=== PATIENT | female | born 1975 | race Caucasian/White ===

== ENCOUNTER 2016-09-28 12:05 | Emergency (ER) | payer OTHER ==
[2016-09-28] MEDS ORDERED: KETOROLAC 60 MG/2 ML VIAL IVP STA (13:41)
[2016-09-28] MEDS ORDERED: SODIUM CHLORIDE 0.9% 1,000 ML IV ONE (13:41)
[2016-09-28] MEDS ORDERED: HYDROmorphone 1 MG/ML SYRINGE IVP STA ×2 (13:41→14:44)
[2016-09-28] MEDS ORDERED: PROMETHAZINE INJ 25 MG in SODIUM CHLORIDE 0.9% 50 ML IV STA ×2 (13:41→14:44)
[2016-09-28] MEDS ORDERED: KETOROLAC 60 MG/2 ML VIAL ONE (13:43)
[2016-09-28] MEDS ORDERED: HYDROmorphone 1 MG/ML SYRINGE ONE ×2 (13:43→15:00)
[2016-09-28] MEDS ORDERED: PROMETHAZINE 25 MG/1 ML VIAL ONE ×2 (13:43→15:00)
== END 2016-09-28 15:59 | disposition home or self-care (01) ==
DX: N23 Unspecified renal colic (principal); F17.200 Nicotine dependence, unspecified, uncomplicated
CPT/HCPCS: 36415; 80053; 81003; 81025; 83690; 85025; 96365; 96366; 96375; 96376; 99284; J1170

== ENCOUNTER 2019-01-13 18:27 | Emergency (ER) | payer OTHER ==
[2019-01-13 18:44] VITALS: BP 143/96
--- NOTE | 2019-01-13 20:28 | ED Physician Documentation ---
History of Present Illness - Stated complaint Stated Complaint: RT KNEE PX - Chief complaint Chief Complaint: Trauma Ext - History obtained from History obtained from: Patient - History of Present Illness Timing: How many days ago (2) Improved by: rest Worsened by: movement - Additonal information Additional information: right knee pain, gradual onset 2 days ago shortly after moving a heavy fire hose with her RLE. The pain and decreased ROM right knee has steadily progressed. She has had increasing difficulty walking down stairs due to symptoms and tonight nearly fell due to the limited ROM when walking down stairs at home. Patient says she cannot take NSAIDs due to polycystic kidney disease Review of Systems Constitutional: denies: Fever, Chills, Sweats Musculoskeletal: reports: Joint pain, Pain with weight bearing. 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 - Present Medications Home Medications: Ambulatory Orders Medication Instructions Recorded Confirmed Lorazepam [Ativan] 1 mg PO Q8H PRN #10 tablet 09/18/14 Oxycodone HCl/Acetaminophen 1 - 2 each PO Q6H PRN #15 tablet 09/18/14 [Percocet 5-325 mg Tablet] Oxycodone HCl/Acetaminophen 1 - 2 tab PO Q4H PRN #15 tablet 09/28/16 [Percocet 5-325 mg Tablet] Promethazine [Phenergan] 25 - 50 mg PO Q6H PRN #15 tab 09/28/16 oxyCODONE [Roxicodone] 5 mg PO Q6H #14 tablet 01/13/19 - Allergies Allergies/Adverse Reactions: Allergies Allergy/AdvReac Type Severity Reaction Status Date / Time No Known Drug Allergies Allergy Verified 01/13/19 18:41 - Social History Does the pt smoke?: Yes Smoking Status: Current every day smoker Does the pt drink ETOH?: Yes Does the pt have substance abuse?: No - Immunizations Immunizations are current?: Yes - POLST Patient has POLST: No PD ED PE NORMAL - Vitals Vital signs reviewed: Yes - General General: Alert and oriented X 3, No acute distress (NAD at rest, but painful discomfort with movement of right knee (particularly with attempts at flexion)), Well developed/nourished - Derm Derm: Normal color, Warm and dry, No rash - Extremities Extremities: No deformity, No edema, No calf tenderness / cord, Other (right knee has no erythema, no increased warmth to touch, no swelling. There is decreased ROM; limited flexion due to pain.) Results - Vitals Vitals: Vital Signs - 24 hr 01/13/19 18:40 Temperature 36.7 C Heart Rate 102 H Respiratory 18 Rate Blood Pressure 143/96 H O2 Saturation 99 Oxygen O2 Source Room air PD MEDICAL DECISION MAKING - ED course Complexity details: considered differential, d/w patient ED course: No elements on HPI, ROS, or exam that indicate emergent testing. Specifically, H+P do not suggest fracture, septic arthritis, gout, dislocation, cellulitis, joint effusion. Departure - Departure Disposition: 01 Home, Self Care Clinical Impression: Right knee sprain Qualifiers: Encounter type: initial encounter Involved ligament of knee: unspecified ligament Qualified Code(s): S83.91XA - Sprain of unspecified site of right knee, initial encounter Condition: Good Instructions: ED Crutch Walking, ED Immobilizer Knee, ED Sprain Knee Follow-Up: Noble Aguilar ARNP [Primary Care Provider] - Tushar Giron MD [Provider Admit Priv/Credential] - Prescriptions: oxyCODONE [Roxicodone] 5 mg PO Q6H #14 tablet Forms: Activity restrictions Discharge Date/Time: 01/13/19 21:02
[2019-01-13] MEDS ORDERED: oxyCODONE 5 MG TABLET PO STA (20:47)
== END 2019-01-13 21:02 | disposition home or self-care (01) ==
LOC: ED 18:27
DX: S83.91XA Sprain of unspecified site of right knee, initial encounter (principal); X50.0XXA Overexertion from strenuous movement or load, initial encounter; Y93.89 Activity, other specified; Y99.0 Civilian activity done for income or pay; F17.200 Nicotine dependence, unspecified, uncomplicated
CPT/HCPCS: 29505; 99283; A9270

== ENCOUNTER 2020-07-12 14:33 | Emergency (ER) | payer OTHER ==
[2020-07-12] MEDS ORDERED: ONDANSETRON 4 MG/2 ML VIAL IVP STA ×2 (14:47→17:14)
[2020-07-12] MEDS ORDERED: HYDROmorphone 1 MG/ML CARPUJECT IVP STA ×3 (14:47→17:56)
[2020-07-12] MEDS ORDERED: SODIUM CHLORIDE 0.9% 1,000 ML IV STA (14:47)
[2020-07-12] MEDS ORDERED: KETOROLAC 30 MG/ML VIAL IVP STA (14:47)
--- NOTE | 2020-07-12 14:48 | ED Physician Documentation ---
PD HPI ABD PAIN - Stated complaint Stated Complaint: KIDNEY PAIN - History obtained from History obtained from: Patient (44-year-old woman with history of polycystic kidney disease and recurrent ureterolithiasis presents with 2 days of severe right flank pain with nausea consistent with prior episodes of renal colic. No fevers. 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 - Present Medications Home Medications: Ambulatory Orders Medication Instructions Recorded Confirmed Naproxen 500 mg PO BID #20 tablet 01/24/20 Oxycodone HCl/Acetaminophen 1 each PO Q6H PRN #20 tablet 01/24/20 [Percocet 5-325 mg Tablet] Tizanidine HCl 4 mg PO TID PRN #25 capsule 01/24/20 Oxycodone HCl/Acetaminophen 1 - 2 each PO Q6H PRN #14 tablet 07/12/20 [Percocet 5-325 mg Tablet] Promethazine [Phenergan] 25 mg PO Q6H PRN #10 tab 07/12/20 - Allergies Allergies/Adverse Reactions: Allergies Allergy/AdvReac Type Severity Reaction Status Date / Time No Known Drug Allergies Allergy Verified 07/12/20 15:04 - Social History Does the pt smoke?: Yes Smoking Status: Current every day smoker Does the pt drink ETOH?: Yes Does the pt have substance abuse?: No - Immunizations Immunizations are current?: Yes - POLST Patient has POLST: No PD ED PE NORMAL - Vitals Vital signs reviewed: Yes - General General: Alert and oriented X 3 (She appears uncomfortable) - Abdomen Abdomen: Soft, Non tender - Back Back: No CVA TTP - Derm Derm: Normal color, Warm and dry - Neuro Neuro: Alert and oriented X 3, Normal speech Results - Vitals Vitals: Vital Signs - 24 hr 07/12/20 07/12/20 07/12/20 15:02 15:07 16:08 Temperature 36.8 C 37.0 C Heart Rate 105 H 79 75 Respiratory 18 16 18 Rate Blood Pressure 131/95 H 116/67 99/67 O2 Saturation 99 98 96 Oxygen O2 Source Room air - Labs Labs: Laboratory Tests 07/12/20 07/12/20 07/12/20 14:42 15:00 15:00 WBC 9.0 RBC 4.09 L Hgb 14.0 Hct 40.2 MCV 98.3 MCH 34.2 H MCHC 34.8 RDW 11.9 L Plt Count 220 MPV 10.7 Neut # (Auto) 6.2 Lymph # (Auto) 2.0 [place] # (Auto) 0.6 Eos # (Auto) 0.2 Baso # (Auto) 0.1 Absolute Nucleated RBC 0.00 Nucleated RBC % 0.0 Sodium 135 Potassium 3.4 L Chloride 103 Carbon Dioxide 23 Anion Gap 9.0 BUN 12 Creatinine 0.6 Estimated GFR (MDRD) 110 Glucose 100 Calcium 8.6 Urine Color YELLOW Urine Clarity CLEAR Urine pH 6.5 Ur Specific [place] 1.020 Urine Protein NEGATIVE Urine Glucose (UA) NEGATIVE Urine Ketones NEGATIVE Urine Occult Blood TRACE-INTA Urine Nitrite NEGATIVE Urine Bilirubin NEGATIVE Urine Urobilinogen 0.2 (NORMAL) Ur Leukocyte Esterase NEGATIVE Ur Microscopic Review NOT INDICATED Urine Culture Comments NOT INDICATED Urine HCG, Qual NEGATIVE PD MEDICAL DECISION MAKING - ED course ED course: 44-year-old woman with history of polycystic kidneys and recurrent renal colic presents with severe right flank pain. Initially I chose not to image her given the seemingly clear-cut diagnosis of renal colic. However her pain was difficult to manage and she was eventually imaged without findings of ureterolithiasis. She remained nontender on abdominal examination and slowly her pain improved although did not resolve. Departure - Departure Disposition: 01 Home, Self Care Clinical Impression: Acute flank pain Condition: Good Record reviewed to determine appropriate education?: Yes Instructions: ED Abdominal Pain Unkn Cause Prescriptions: Oxycodone HCl/Acetaminophen [Percocet 5-325 mg Tablet] 1 - 2 each PO Q6H PRN #14 tablet PRN Reason: pain Promethazine [Phenergan] 25 mg PO Q6H PRN #10 tab PRN Reason: Nausea / Vomiting Comments: Call your doctor to arrange a follow-up appointment, make the next available appointment. In the interim, return anytime if worse or if new symptoms develop.
[2020-07-12 15:13] LABS: BILIRUBIN,URINE NEGATIVE (NEGATIVE); GLUCOSE, URINE (UA) NEGATIVE (NEGATIVE); KETONES,URINE (UA) NEGATIVE (NEGATIVE); LEUKOCYTE ESTERASE, URINE NEGATIVE (NEGATIVE); NITRITE,URINE NEGATIVE (NEGATIVE); OCCULT BLOOD,URINE TRACE-INTA (NEGATIVE); PH,URINE 6.5 PH (5.0-7.5); PROTEIN,URINE NEGATIVE (NEGATIVE); UROBILINOGEN,URINE 0.2 (NORMAL) E.U./dL (NORMAL)
[2020-07-12 15:15] LABS: BASOPHILS # (AUTO) 0.1 10^3/uL (0.0-0.1); BASOPHILS % (AUTO) 0.8 %; EOSINOPHILS # (AUTO) 0.2 10^3/uL (0.0-0.7); EOSINOPHILS % (AUTO) 1.8 %; LYMPHOCYTES % (AUTO) 21.6 %; MEAN CORPUSCULAR HEMOGLOBIN 34.2 pg (27.0-31.0); MEAN CORPUSCULAR HGB CONC 34.8 g/dL (32.0-36.0); MEAN CORPUSCULAR VOLUME 98.3 fL (81.0-99.0); MEAN PLATELET VOLUME 10.7 fL (7.9-10.8); MONOCYTES # (AUTO) 0.6 10^3/uL (0.0-1.0); MONOCYTES % (AUTO) 6.9 %; NEUTROPHILS # (AUTO) 6.2 10^3/uL (1.5-6.6); NEUTROPHILS % (AUTO) 68.6 %; PLT - PLATELET COUNT 220 10^3/uL (130-450); RED BLOOD COUNT 4.09 10^6/uL (4.20-5.40); RED CELL DISTRIBUTION WIDTH 11.9 % (12.0-15.0)
[2020-07-12 15:17] LABS: CLARITY,URINE CLEAR (CLEAR); HCG UR QUAL NEGATIVE
[2020-07-12 15:22] LABS: CALCIUM 8.6 mg/dL (8.5-10.3); CREATININE 0.6 mg/dL (0.4-1.0)
[2020-07-12] MEDS: HYDROmorphone 1 MG/ML CARPUJECT IVP STA (15:25)
[2020-07-12] MEDS ORDERED: PROMETHAZINE INJ 25 MG in SODIUM CHLORIDE 0.9% 50 ML IV STA ×2 (15:27→17:56)
[2020-07-12] MEDS ORDERED: LIDOCAINE-MPF 2% 6 ML in SODIUM CHLORIDE 0.9% 50 ML IV STA (16:23)
--- NOTE | 2020-07-12 17:05 | CT Report ---
PROCEDURE: Abdomen/Pelvis WO INDICATIONS: R flank pain TECHNIQUE: Noncontrast 5 mm thick sections acquired from the diaphragms to the symphysis. 5 mm coronal and sagi ttal reformats were then performed. For radiation dose reduction, the following was used: automated exposure control, adjustment of mA and/or kV according to patient size. COMPARISON: Correlation is made with lumbar spine CT, 01/24/2020 FINDINGS: Image quality: Excellent. ABDOMEN: Lung bases: Lung bases are clear. Heart size is normal. Solid organs: Liver and spleen are normal in size. Numerous prominent water density liver cysts are seen. Gallbladder is unremarkable by CT. Pancreas is normal in contours. No adrenal nodules. Kidneys are normal in size, without hydronephrosis or nephrolithiasis. Numerous liver cysts are seen . A few hyperdense cysts can be seen. A few of the cysts demonstrate calcified toscano. There is a 4 mm nonobstructing right mid kidney stone, as on series 6 image 63 Potential additional nonobstructing r enal calculi can be seen, yet they are difficult to distinguish from cyst wall calcification. No ston es are seen along the courses of the ureters. Peritoneum and bowel: Unenhanced bowel loops demonstrate normal wall thickness and caliber. No free fluid or air. A normal appendix is incidentally noted. Nodes and vessels: No retroperitoneal or mesenteric adenopathy by size criteria. Aorta and inferior vena cava are normal in caliber. Miscellaneous: No ventral hernias. PELVIS: Genitourinary: Bladder wall thickness is normal. Miscellaneous: No inguinal hernias or adenopathy. Bones: No suspicious bony lesions. No vertebral body compression fractures. Minimal levoconvex scol iotic curvature. IMPRESSION: No ureteral stones or findings of obstructive uropathy are seen. Numerous bilateral renal cysts are seen, some which appear complicated. Polycystic kidney disease is suspected. At least one nonobstructing right-sided kidney stone can be seen, measuring 4 mm. Numerous simple appearing liver cysts are seen. Incidental note is made of: Normal appendix Minimal levoconvex scoliotic curvature. Reviewed by: Nirav Goss MD on 07/12/2020 4:04 PM [place] Approved by: Nirav Goss MD on 07/12/2020 4:04 PM [facility] Station ID: [id number]
[2020-07-12] MEDS ORDERED: MORPHINE 2 MG/ML CARPUJECT IVP STA (17:14)
[2020-07-12 18:16] VITALS: BP 118/90
== END 2020-07-12 19:03 | disposition home or self-care (01) ==
LOC: ED 14:33
DX: R10.13 Epigastric pain (principal); Q61.3 Polycystic kidney, unspecified; F17.200 Nicotine dependence, unspecified, uncomplicated
CPT/HCPCS: 36415; 74176; 80048; 81003; 81025; 85025; 96365; 96366; 96367; 96375; 96376; 99284; 99285; J1170; J7040; 81001; 87086

== ENCOUNTER 2023-09-22 17:46 | Emergency (ER) | payer OTHER ==
[2023-09-22 18:29] LABS: BASOPHILS # (AUTO) 0.1 10^3/uL (0.0-0.1); BASOPHILS % (AUTO) 0.8 %; EOSINOPHILS # (AUTO) 0.2 10^3/uL (0.0-0.7); HCT - HEMATOCRIT 41.4 % (37.0-47.0); HGB - HEMOGLOBIN 14.1 g/dL (12.0-16.0); LYMPHOCYTES # (AUTO) 2.8 10^3/uL (1.5-3.5); LYMPHOCYTES % (AUTO) 30.2 %; MEAN CORPUSCULAR HEMOGLOBIN 33.7 pg (27.0-31.0); MEAN CORPUSCULAR HGB CONC 34.1 g/dL (32.0-36.0); MEAN CORPUSCULAR VOLUME 98.8 fL (81.0-99.0); MEAN PLATELET VOLUME 10.4 fL (7.9-10.8); MONOCYTES # (AUTO) 0.7 10^3/uL (0.0-1.0); MONOCYTES % (AUTO) 7.3 %; NEUTROPHILS # (AUTO) 5.5 10^3/uL (1.5-6.6); NEUTROPHILS % (AUTO) 59.4 %; PLT - PLATELET COUNT 226 10^3/uL (130-450); RED BLOOD COUNT 4.19 10^6/uL (4.20-5.40); RED CELL DISTRIBUTION WIDTH 11.9 % (12.0-15.0); WHITE BLOOD COUNT 9.2 x10^3/uL (4.8-10.8)
[2023-09-22 18:45] LABS: ALBUMIN 4.2 g/dL (3.2-5.5); ALBUMIN/GLOBULIN RATIO 1.4 (1.0-2.2); BILIRUBIN,TOTAL 0.6 mg/dL (0.2-1.0); CALCIUM 9.5 mg/dL (8.5-10.3); CREATININE 0.8 mg/dL (0.6-1.3); POTASSIUM 3.7 mmol/L (3.5-4.5); TOTAL PROTEIN 7.2 g/dL (6.4-8.9)
[2023-09-22 19:11] LABS: BILIRUBIN,URINE NEGATIVE (NEGATIVE); GLUCOSE, URINE (UA) NEGATIVE (NEGATIVE); KETONES,URINE (UA) NEGATIVE (NEGATIVE); LEUKOCYTE ESTERASE, URINE NEGATIVE (NEGATIVE); NITRITE,URINE NEGATIVE (NEGATIVE); OCCULT BLOOD,URINE NEGATIVE (NEGATIVE); PROTEIN,URINE NEGATIVE (NEGATIVE); UROBILINOGEN,URINE 0.2 (NORMAL) E.U./dL (NORMAL)
[2023-09-22 19:14] LABS: CLARITY,URINE CLEAR (CLEAR)
[2023-09-22] MEDS: HYDROmorphone 1 MG/ML CARPUJECT IVP STA ×2 (19:27→21:17)
[2023-09-22] MEDS ORDERED: iohexoL-300 100 ML VIAL ONE (19:41)
[2023-09-22] MEDS ORDERED: PROMETHAZINE 25 MG/1 ML VIAL ONE (19:43)
[2023-09-22] MEDS: PROMETHAZINE INJ 25 MG in SODIUM CHLORIDE 0.9% 50 ML IV STA (19:44)
[2023-09-22] MEDS: iohexoL-300 100 ML VIAL IVP ONE (20:02)
--- NOTE | 2023-09-22 20:52 | CT Report ---
PROCEDURE: Abdomen/Pelvis W INDICATIONS: R flank pain CONTRAST: 100mL Omni 300 TECHNIQUE: After the administration of intravenous contrast, a CT scan of the abdomen and pelvis was performed. Images were recorded and evaluated at appropriate window settings. Reformats: coronal and sagittal. F or radiation dose reduction, the following was used: automated exposure control, adjustment of mA and /or kV according to patient size. COMPARISON: CT 07/12/2020 FINDINGS: Image quality: Diagnostic. Lower chest: Unremarkable. Liver: Polycystic liver disease. Gallbladder and biliary tree: Surgically absent. No biliary dilation, accounting for post-cholecystec jose state. Spleen: No splenomegaly. Pancreas: No pancreatic ductal dilation. Adrenals: No adrenal nodule. Kidneys and ureters: No hydronephrosis. No renal cystic lesion which requires follow up. No solid mas s. Polycystic kidney disease. Small burden of punctate, nonobstructing right-sided nephrolithiasis. Stomach, bowel and peritoneum: No bowel distension. No pathologic free fluid. Normal appendix. Coloni c diverticulosis without evidence of diverticulitis. Lymph nodes: No central or retroperitoneal adenopathy. Vessels: No infrarenal aortic aneurysm. PELVIS Reproductive organs: Unremarkable. Bladder: No abnormal wall thickening, accounting for underdistention. Pelvic lymph nodes: No pelvic adenopathy by size criteria. Bones: No aggressive osseous abnormality. Other: No significant ventral or inguinal hernia. IMPRESSION: No obstructing nephrolithiasis. Normal appendix. No acute abnormality. Polycystic kidney and liver disease. Reviewed by: Robert Mir MD on 09/22/2023 8:51 PM PST Approved by: Robert Mir MD on 09/22/2023 8:51 PM PST Station ID: [id number]
[2023-09-22] MEDS: KETOROLAC 30 MG/ML VIAL IVP STA (21:52)
[2023-09-22] MEDS: DROPERIDOL 5 MG/2 ML VIAL IVP STA (22:08)
[2023-09-22 22:30] VITALS: BP 99/60; O2SAT 97
--- NOTE | 2023-09-22 22:37 | Ultrasound Report ---
PROCEDURE: Abdomen Limited INDICATIONS: RUQ abd pain TECHNIQUE: Real-time focused scanning was performed of the abdomen, with image documentation. COMPARISONS: Same day CT. FINDINGS: Liver: Polycystic liver. Gallbladder: Unremarkable. Biliary ducts: Intrahepatic bile ducts are non-dilated. Extrahepatic bile duct caliber measures 8 m m. Normal is 6-7 mm or less in diameter, or 10 mm or less post-cholecystectomy. Pancreas: Not well visualized due to overlying bowel gas. Right kidney: Polycystic kidneys. Right kidney measures 16.4 cm long. No hydronephrosis or nephrolit hiasis. No solid masses. No complex renal cystic lesions which require follow-up. Aorta: Visualized aorta is normal in caliber at less than 3 cm. IVC: Intrahepatic inferior vena cava is patent. Miscellaneous: No free abdominal fluid. IMPRESSION: No gallbladder pathology. Polycystic liver and kidney disease. Reviewed by: Robert Mir MD on 09/22/2023 10:36 PM PST Approved by: Robert Mir MD on 09/22/2023 10:36 PM PST Station ID: [id number]
--- NOTE | 2023-09-22 22:41 | ED Physician Documentation ---
History of Present Illness - Stated complaint Stated Complaint: R SIDE PX - Chief complaint Chief Complaint: Abd Pain - History obtained from History obtained from: Patient - History of Present Illness Timing: Today Pain level max: 10 Pain level now: 10 - Additonal information Additional information: 47-year-old female with a history of polycystic kidney and polycystic liver disease presents with right-sided abdominal pain. Nothing makes it better or worse. She states she has a history of kidney stones as well and is unsure if she could be passing a kidney stone. No urinary symptoms. No fevers. No chills. Some nausea but no vomiting. No diarrhea. No constipation. States that she has a history of gallbladder sludge as well. Has not taken anything for pain at home. 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 - Present Medications Home Medications: Ambulatory Orders Medication Instructions Recorded Confirmed Naproxen 500 mg PO BID #20 tablet 01/24/20 Tizanidine HCl 4 mg PO TID PRN #25 capsule 01/24/20 Promethazine Supp [Phenergan Supp] 25 mg [place] Q6H PRN #14 supp 09/22/23 Promethazine [Phenergan] 25 mg PO Q6H PRN #20 tab 09/22/23 oxyCODONE [Roxicodone] 5 - 10 mg PO Q6H PRN #20 tablet 09/22/23 MDD 6 - Allergies Allergies/Adverse Reactions: Allergies Allergy/AdvReac Type Severity Reaction Status Date / Time No Known Drug Allergies Allergy Verified 09/22/23 18:05 - Social History Does the pt smoke?: Yes Smoking Status: Current every day smoker Does the pt drink ETOH?: Yes Does the pt have substance abuse?: No - Immunizations Immunizations are current?: Yes - POLST Patient has POLST: No PD ED PE NORMAL - Vitals Vital signs reviewed: Yes - General General: Alert and oriented X 3, No acute distress, Well developed/nourished - HEENT HEENT: PERRL, Moist mucous membranes - Neck Neck: Supple, no meningeal sign - Cardiac Cardiac: RRR, Strong equal pulses - Respiratory Respiratory: No respiratory distress, Clear bilaterally - Abdomen Abdomen: Soft, Non distended, Other (Mild tenderness in the right upper quadrant. No peritoneal signs. Negative Dietz sign) - Back Back: No CVA TTP - Derm Derm: Warm and dry, No rash - Extremities Extremities: No edema - Neuro Neuro: Alert and oriented X 3 - Psych Psych: Normal mood, Normal affect Results - Vitals Vitals: Vital Signs - 24 hr 09/22/23 09/22/23 09/22/23 18:03 18:39 19:02 Temperature 36.5 C Heart Rate 99 90 Respiratory 22 17 18 Rate Blood Pressure 148/94 H O2 Saturation 99 98 09/22/23 09/22/23 09/22/23 19:34 21:25 22:18 Temperature Heart Rate 89 85 91 Respiratory 21 18 18 Rate Blood Pressure 131/109 H 111/83 H 99/60 O2 Saturation 98 98 97 09/22/23 22:51 Temperature Heart Rate Respiratory 18 Rate Blood Pressure O2 Saturation Oxygen O2 Source Room air - Labs Labs: Laboratory Tests 09/22/23 09/22/23 09/22/23 18:12 18:20 18:20 WBC 9.2 RBC 4.19 L Hgb 14.1 Hct 41.4 MCV 98.8 MCH 33.7 H MCHC 34.1 RDW 11.9 L Plt Count 226 MPV 10.4 Neut # (Auto) 5.5 Lymph # (Auto) 2.8 [place] # (Auto) 0.7 Eos # (Auto) 0.2 Baso # (Auto) 0.1 Absolute Nucleated RBC 0.00 Nucleated RBC % 0.0 Sodium 136 Potassium 3.7 Chloride 104 Carbon Dioxide 23 Anion Gap 9.0 BUN 11 Creatinine 0.8 Estimated GFR (MDRD) 78 L Glucose 95 Calcium 9.5 Total Bilirubin 0.6 AST 22 ALT 31 Alkaline Phosphatase 65 Total Protein 7.2 Albumin 4.2 Globulin 3.0 Albumin/Globulin Ratio 1.4 Lipase 40 Urine Color YELLOW Urine Clarity CLEAR Urine pH 7.0 Ur Specific [place] 1.010 Urine Protein NEGATIVE Urine Glucose (UA) NEGATIVE Urine Ketones NEGATIVE Urine Occult Blood NEGATIVE Urine Nitrite NEGATIVE Urine Bilirubin NEGATIVE Urine Urobilinogen 0.2 (NORMAL) Ur Leukocyte Esterase NEGATIVE Ur Microscopic Review NOT INDICATED Urine Culture Comments NOT INDICATED - Rads (name of study) CT abdomen pelvis Relevant Findings:: Final report received, See rad report Right upper quadrant ultrasound Relevant Findings:: Final report received, See rad report PD Medical Decision Making - ED course Complexity details: reviewed results, re-evaluated patient, considered differential, d/w patient ED course: 47-year-old female with right-sided abdominal pain. CT scan and ultrasound do not show any acute abnormalities. Does have significant polycystic liver and kidney disease. Possible pain from that? Normal-appearing bowel. No perforations. No abscess. Symptoms Not consistent with gastric ulcer or duo denal ulcer. Laboratory testing is normal. Pain greatly improved with IV Dilaudid. She states that Zofran usually does not help for her nausea, was given Phenergan and then droperidol. Nausea and vomiting resolved. She did not have vomiting prior to the ER. We will prescribe pain medication for home and have her follow-up closely with her doctor for further care. Patient is well- appearing, nontoxic. Tolerating p.o. without difficulty. Patient counseled regarding signs and symptoms for which I believe and urgent re-evaluation would be necessary. Patient with good understanding of and agreement to plan and is comfortable going home at this time This document was made in part using voice recognition software. While efforts are made to proofread this document, sound alike and grammatical errors may occur. Departure - Departure Disposition: 01 Home, Self Care Clinical Impression: Abdominal pain Qualifiers: Abdominal location: unspecified location Qualified Code(s): R10.9 - Unspecified abdominal pain Condition: Good Instructions: ED Abdominal Pain Female Non-Specific Abdominal Pain Follow-Up: ARTEMIO WOODS MD [Primary Care Provider] - Within 1 week Prescriptions: Promethazine [Phenergan] 25 mg PO Q6H PRN #20 tab PRN Reason: Nausea / Vomiting Promethazine Supp [Phenergan Supp] 25 mg [place] Q6H PRN #14 supp PRN Reason: nausea oxyCODONE [Roxicodone] 5 - 10 mg PO Q6H PRN #20 tablet MDD 6 PRN Reason: pain Comments: Your prescription was sent to [facility] in [place]. The cause of your symptoms is unclear today, it may be related to your polycystic liver or kidney disease. There is no evidence of gallbladder pathology. There are no stones that are being passed. You do not have any significant lab abnormalities. Please follow-up with your doctor for further care and please return if you worsen. I am prescribing a short course of narcotic pain medication for you. These are potentially dangerous and addictive medications that should be used carefully. These medications may constipate you. Take an [id number] stool softener (docusate) twice daily with plenty of water while taking these medications. If you go 24 hours without a bowel movement, take [id number] miralax, per package instructions. Do not drink or drive while taking these medications. If you received narcotic or sedating medications while in the emergency department, do not drive for 24 hours. Store this medication in a safe, secure place and out of reach of children. It is a violation of federal law to give or sell this medication to another person or to use in a manner other than prescribed. The ED will not refill narcotic prescriptions, including prescriptions lost or stolen. To dispose of unwanted medications: 1. [facility] [address] [facility] in [place] has a medication drop box. They accept prescription medications (in pill form) Wednesday through Wednesday 9:00 a.m. to 5:00 p.m. 2. [facility] [employer] accepts prescription medications (in pill form only) for disposal year round. Call for more information. 3. Contact the [facility] for the next [facility] sponsored prescription drug collection event. , [phone], or [phone]; Forms: PCP List Discharge Date/Time: 09/22/23 22:58
[2023-09-22] MEDS: oxyCODONE 5 MG TABLET PO STA (22:49)
== END 2023-09-22 22:58 | disposition home or self-care (01) ==
LOC: ED 17:46
DX: R10.9 Unspecified abdominal pain (principal); F17.200 Nicotine dependence, unspecified, uncomplicated; Z79.899 Other long term (current) drug therapy
CPT/HCPCS: 36415; 80053; 81001; 81003; 83690; 85025; 87086; 96365; 96375; 96376; 99283